=== PATIENT | female | born 1985 | race Caucasian/White ===

== ENCOUNTER 2018-07-10 17:48 | Inpatient (IN) | payer OTHER ==
[2018-07-10 18:22] VITALS: BMI 20.1
--- NOTE | 2018-07-10 19:10 | HP ---
"CIWA Score - Admission Criteria [facility]ASAS Guidelines: Admission for Medically Managed Detox: Requires at least one of the followin. CIWA greater than 12 2. Seizures within the past 24 hours 3. Delirium tremens within the past 24 hours 4. Hallucinations within the past 24 hours 5. Acute intervention needed for co occurring medical disorder 6. Acute intervention needed for co occurring psychiatric disorder 7. Severe withdrawal that cannot be handled at a lower level of care (continued vomiting, continued diarrhea, abnormal vital signs) requiring intravenous medication and/or fluids 8. Admission ROS [facility] - HPI History of Present Illness: x x x Search Terms: Zulema Rosas, 1985 Search Date: 07/10/2018 06:51:34 PM The Drug Utilization Report below displays all of the controlled substance prescriptions, if any, that your patient has filled in the last twelve months. The information displayed on this report is compiled from pharmacy submissions to the Department, and accurately reflects the information as submitted by the pharmacies. This report was requested by: Nati Ramsey | Reference #: [id number] There are no results for the search terms that you entered. - Ebola screening Have you been sick,other than usual withdrawal symptoms: No Admission Physical Exam BHS - Vital Signs Vital Signs: Vital Signs - 24 hr 07/10/18 18:19 Temperature 98.8 F Pulse Rate 108 H Respiratory 18 Rate Blood Pressure 140/99 BHS Breath Alcohol Content Breath Alcohol Content: 0 Urine Pregancy Test - Result Urine Test Results: Negative- NO Line Present Urine Drug Screen - Results Drug Screen Negative: No Urine Drug Screen Results: OPI-Opiates, BAR-Barbiturates, BZO-Benzodiazepines, OXY-Oxycodone, FEN-Fentanyl"
--- NOTE | 2018-07-10 20:38 | HP ---
"COWS - Scale Resting Pulse: 2= [place] 101-120 Sweatin= Chills/Flushing Restless Observation: 1= Difficult to Sit Still Pupil Size: 0= Normal to Room Light Bone or Joint Aches: 4=Acute Joint/Muscle Pain Runny Nose/ Eye Tearin= Nasal Congestion GI Upset > 30mins: 1= Stomach Cramp Tremor Observation: 2= Slight Tremor Visible Yawning Observation: 0= None Anxiety or Irritability: 2=Irritable/Anxious Goose Flesh Skin: 0=Smooth Skin COWS Score: 14 CIWA Score - Admission Criteria [facility]ASAS Guidelines: Admission for Medically Managed Detox: Requires at least one of the followin. CIWA greater than 12 2. Seizures within the past 24 hours 3. Delirium tremens within the past 24 hours 4. Hallucinations within the past 24 hours 5. Acute intervention needed for co occurring medical disorder 6. Acute intervention needed for co occurring psychiatric disorder 7. Severe withdrawal that cannot be handled at a lower level of care (continued vomiting, continued diarrhea, abnormal vital signs) requiring intravenous medication and/or fluids 8. Admission ROS [facility] Chief Complaint: C/O WORSENING WITHDRAWAL SX'S. SEEKING DETOX FROM ALCOHOL Allergies/Adverse Reactions: Allergies Allergy/AdvReac Type Severity Reaction Status Date / Time No Known Allergies Allergy Verified 07/10/18 20:10 History of Present Illness: 33 Y.O. FEMLAE WITH HX/O OPIOID DEPENDENCE HERE FOR DETOX. SELF REFERRED. PRESENTS WITH C/O WITHDRAWAL SX'S. COWS 14. STATES THIS IS HER FIRST INPATIENT DETOX. REPORTS LONGEST CLEAN TIME IS 1 WEEK IN THE YEAR THAT SHE HAS BEEN USING HEROIN. PMHX- ENDOMETRIOSIS, ANXIETY,PTSD. REPORTS HX/O SI BUT PRESENTLY DENIES SI/HI AND AVH. LIVES WITH S/O, SELF EMPLOYED, CURRENTLY ON PROBATION. Search Terms: navi valenzuela, 1985 Search Date: 07/10/2018 09:00:00 PM States Searched: [place], [place], [place], [place], [place], [place], [place], [place], [place], [place], [place], [place], [place], [place], [place], [place] , [place], [place], [place], [place], [place], [place], [place], [place], [place], [place], [place] The Drug Utilization Report below displays the controlled substance prescriptions, if any, that were dispensed in the indicated state(s). The information displayed on this report is compiled from requests submitted to other states' PMPs, and accurately reflects the information as returned by them. Blank mckinley indicate data not provided by other state. This report was requested by: Danya Decker | Reference #: [id number] Exam Limitations: No Limitations - Ebola screening Have you traveled outside of the country in the last 21 days: No Have you had contact with anyone from an Ebola affected area: No Have you been sick,other than usual withdrawal symptoms: No Do you have a fever: No - Review of Systems Constitutional: Chills, Loss of Appetite, Night Sweats, Changes in sleep, Unintentional Wgt. Loss EENT: reports: Nose Congestion Respiratory: reports: No Symptoms reported Cardiac: reports: No Symptoms Reported GI: reports: Poor Appetite, Abdominal cramping : reports: No Symptoms Reported Musculoskeletal: reports: Joint Pain Integumentary: reports: No Symptoms Reported Neuro: reports: No Symptoms reported Endocrine: reports: No Symptoms Reported Hematology: reports: No Symptoms Reported Psychiatric: reports: Orientated x3, Anxious, Depressed Other Systems: Reviewed and Negative Patient History - Patient Medical History Hx Anemia: No Hx Asthma: No Hx Chronic Obstructive Pulmonary Disease (COPD): No Hx Cancer: No Hx Cardiac Disorders: No Hx Congestive Heart Failure: No Hx Hypertension: No Hx Hypercholesterolemia: No Hx Pacemaker: No HX Cerebrovascular Accident: No Hx Seizures: No Hx Dementia: No Hx Diabetes: No Hx Gastrointestinal Disorders: No Hx Liver Disease: No Hx Genitourinary Disorders: No Hx Sexually Transmitted Disorders: No Hx Renal Disease (ESRD): No Hx Thyroid Disease: No Hx Human Immunodeficiency Virus (HIV): No Hx Hepatitis C: No Hx Depression: Yes Hx Suicide Attempt: No Hx Bipolar Disorder: No Hx Schizophrenia: No Other Medical History: ANXIETY, PTSD, ENDOMETRIOSIS - Patient Surgical History Past Surgical History: Yes Other Surgical History: D&C 4 YEARS AGO Anesthesia Reaction: No - PPD History Previous Implant?: No Implanted On Prior R Admission?: No PPD to be Administered?: Yes - Reproductive History Patient is a Female of Child Bearing Age (11 -55 yrs old): Yes Last Menstrual Period: 06/11/18 Patient : No [place] [place] - Smoking Cessation Smoking history: Current every day smoker Have you smoked in the past 12 months: Yes Aproximately how many cigarettes per day: 20 Cigars Per Day: 0 Hx Chewing Tobacco Use: No Initiated information on smoking cessation: Yes 'Breaking Loose' booklet given: 07/10/18 - Substance & Tx. History Hx Alcohol Use: No Hx Substance Use: Yes Substance Use Type: Heroin Hx Substance Use Treatment: No - Substances Abused Heroin Route: Injection Frequency: Daily Amount used: 6 BAGS Age of first use: 32 Date of Last Use: 07/10/18 Oxycontin Route: Oral Frequency: 3-6 times per week Amount used: 2/30MG Age of first use: 32 Date of Last Use: 07/10/18 [place] Route: Injection Frequency: Daily Amount used: 1 PILL Age of first use: 32 Date of Last Use: 07/10/18 Family Disease History - Family Disease History Family History: Denies Admission Physical Exam [facility] - Vital Signs Vital Signs: Vital Signs - 24 hr 07/10/18 18:19 Temperature 98.8 F Pulse Rate 108 H Respiratory 18 Rate Blood Pressure 140/99 - Physical General Appearance: Yes: Appropriately Dressed, Tremorous, Sweating (FLUSHED), Anxious HEENTM: Yes: EOMI, Normocephalic, Normal Voice, SEB, Pharynx Normal, Nasal Congestion, Other (DIALATED PUPILS) Respiratory: Yes: Chest Non-Tender, Lungs Clear, Normal Breath Sounds, No Respiratory Distress, No Accessory Muscle Use Neck: Yes: No masses,lesions,Nodules, Supple, Trachea in good position Breast: Yes: Breast Exam Deferred Cardiology: Yes: Regular Rhythm, S1, S2, Tachycardia Abdominal: Yes: Normal Bowel Sounds, Non Tender, Flat, Soft Genitourinary: Yes: Other (NO C/O) Back: Yes: Normal Inspection Musculoskeletal: Yes: full range of Motion, Gait Steady Extremities: Yes: Normal Capillary Refill, Normal Range of Motion, Non-Tender, Tremors Neurological: Yes: community center director II-XII NML intact, Fully Oriented, Alert, Motor Strength 5/5 Integumentary: Yes: Dry, Track Currie, Other (FLUSHED) Lymphatic: Yes: Within Normal Limits - Diagnostic (1) Opioid dependence with withdrawal Current Visit: Yes Status: Acute (2) Nicotine dependence Current Visit: Yes Status: Chronic Qualifiers: Nicotine product type: cigarettes Substance use status: uncomplicated Qualified Code(s): F17.210 - Nicotine dependence, cigarettes, uncomplicated (3) Drug induced insomnia Current Visit: Yes Status: Suspected (4) Endometriosis Current Visit: Yes Status: Chronic (5) At risk for dehydration due to poor fluid intake Current Visit: Yes Status: Acute (6) Drug-induced mood disorder Current Visit: Yes Status: Suspected Cleared for Admission [facility] - Detox or Rehab [facility] Level of Care: Medically Managed Detox Regimen/Protocol: Methadone Claeared for Rehab Admission: No [facility] Breath Alcohol Content Breath Alcohol Content: 0 Urine Pregancy Test - Result Urine Test Results: Negative- NO Line Present Urine Drug Screen - Results Drug Screen Negative: No Urine Drug Screen Results: OPI-Opiates, BAR-Barbiturates, BZO-Benzodiazepines, OXY-Oxycodone, FEN-Fentanyl"
[2018-07-10] MEDS ORDERED: ACETAMINOPHEN 325 MG TABLET (FP) PO PRN (20:45)
[2018-07-10] MEDS ORDERED: IBUPROFEN 400 MG TABLET (FP) PO PRN (20:45)
[2018-07-10] MEDS ORDERED: guaiFENesin/D-METHORPHAN HB 10 ML UNIT-DOSE CUPS PO PRN (20:45)
[2018-07-10] MEDS ORDERED: hydrOXYzine PAMOATE 50 MG CAPSULE (FP) PO PRN (20:45)
[2018-07-10] MEDS ORDERED: MAG HYDROX/AL HYDROX/SIMETH 30 ML UNIT-DOSE CUP PO PRN (20:45)
[2018-07-10] MEDS ORDERED: LOPERAMIDE HCL 2 MG CAPSULE PO PRN (20:45)
[2018-07-10] MEDS ORDERED: MAGNESIUM CITRATE 300 ML BOTTLE PO PRN (20:45)
[2018-07-10] MEDS ORDERED: P-EPHED 60MG/TRIPROLIDI 2.5MG TABLET PO PRN (20:45)
[2018-07-10] MEDS ORDERED: MENTHOL/PHENOL 1 EACH UD MM PRN (20:45)
[2018-07-10] MEDS ORDERED: MAGNESIUM HYDROX 2400MG/30ML ORAL SUSPENSION 30 ML CUP PO PRN (20:45)
[2018-07-10] MEDS ORDERED: METHADONE HCL 10 MG TABLET (FOR DETOX USE ONLY) PO ONE ×2 (20:45→23:00)
[2018-07-10] MEDS ORDERED: NICOTINE POLACRILEX 2 MG GUM BC PRN (20:45)
[2018-07-10] MEDS ORDERED: MELATONIN 5 MG TABLETS PO PRN (22:00)
[2018-07-10] MEDS ORDERED: THIAMINE HCL 100 MG TABLET (FP) PO SCH (22:00)
[2018-07-10] MEDS: diazePAM 5 MG TABLET PO PRN (22:02)
[2018-07-10] MEDS: GABAPENTIN 300 MG CAPSULE (FP) PO SCH (22:03)
[2018-07-11] MEDS: diazePAM 5 MG TABLET PO PRN ×4 (01:59→18:04)
[2018-07-11] MEDS ORDERED: IBUPROFEN 400 MG TABLET (FP) PO ONE (03:41)
[2018-07-11] MEDS ORDERED: hydrOXYzine PAMOATE 50 MG CAPSULE (FP) PO ONE (03:41)
[2018-07-11] MEDS ORDERED: METHADONE HCL 10 MG TABLET (FOR DETOX USE ONLY) PO ONE ×2 (03:43→10:00)
--- NOTE | 2018-07-11 03:48 | PN ---
S Progress Note Note: seen for c/o worsening withdrawal sx's , pain, anxiety. reports using 36 bags of heroin. menses started and suffering from endometrial pain 01/18. Vital Signs Temperature 97.8 F 07/11/18 03:47 Pulse Rate 101 H 07/11/18 03:47 Respiratory Rate 18 07/11/18 03:47 Blood Pressure 116/81 07/11/18 03:47 O2 Sat by Pulse Oximetry (%) awake, anxious, pacing, a/o x3, requesting to sign out methadone 10 mg now motrin 400 mg now vistaril 50 mg po now
--- NOTE | 2018-07-11 07:48 | CONSULT ---
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 Substance Abuse History: Wellbutrin 100mg po bid. Gabapentin 800mg po tid Medical History: Endometriosis history Psychiatric History: Patient reports history of depression and anxiety, reports unclear psychiatric hospitalization on more then 10 years ago, currently taking prior o admission: Gabapentin 300mg po0 tid. Denies suicidal, homicidal history Physical/Sexual Abuse/Trauma History: Denies Additional Comment: Gabapentin 300mg po0 tid Mental Status Exam - Mental Status Exam Alert and Oriented to: Person Cognitive Function: Fair Patient Appearance: Unkempt Mood: Apprehensive Affect: Mood Congruent Patient Behavior: Cooperative Speech Pattern: Appropriate Voice Loudness: Mildly Soft/Quiet Thought Process: Circumstantial Thought Disorder: Being Controlled Hallucinations: Denies Suicidal Ideation: Denies Homicidal Ideation: Denies Insight/Judgement: Fair Sleep: Difficulty falling asleep Appetite: Fair Muscle strength/Tone: Mild Hypotonicity Gait/Station: Shuffling Additional Comments: Gabapentin 300mg po0 tid Psychiatric Findings - Problem List ([place] 1, 2,3) (1) Opioid dependence with withdrawal Current Visit: Yes Status: Acute (2) Endometriosis Current Visit: Yes Status: Chronic (3) Nicotine dependence Current Visit: Yes Status: Chronic Qualifiers: Nicotine product type: cigarettes Substance use status: uncomplicated Qualified Code(s): F17.210 - Nicotine dependence, cigarettes, uncomplicated (4) Drug induced insomnia Current Visit: Yes Status: Suspected (5) Drug-induced mood disorder Current Visit: Yes Status: Suspected - Initial Treatment Plan Initial Treatment Plan: Gabapentin 300mg po0 tid
[2018-07-11] MEDS: GABAPENTIN 300 MG CAPSULE (FP) PO SCH ×2 (08:08→14:02)
[2018-07-11] MEDS ORDERED: PRENATAL VITAMINS W/ FOLIC ACID TABLET (FP) PO SCH (10:00)
[2018-07-11] MEDS ORDERED: NICOTINE 21 MG/24 HOURS TOPICAL PATCH TD SCH (10:00)
[2018-07-11 10:34] LABS: HEMATOCRIT 42.3 % (32.4-45.2); HEMOGLOBIN 14.7 GM/dL (10.7-15.3); MCH 30.8 pg (25.7-33.7); MCHC 34.7 g/dl (32.0-36.0); MEAN CELL VOLUME 88.7 fl (80-96); MEAN PLT VOLUME 9.1 fl (7.5-11.1); PLATELET COUNT 293 K/MM3 (134-434); RBC 4.77 M/mm3 (3.60-5.2); RDW 13.5 % (11.6-15.6); WHITE BLOOD COUNT 7.7 K/mm3 (4.0-10.0)
[2018-07-11 10:49] LABS: ALBUMIN 3.7 g/dl (3.4-5.0); ALK PHOS 58 U/L (45-117); ANION GAP 9 MMOL/L (8-16); BILIRUBIN,TOTAL 0.4 mg/dL (0.2-1); BLOOD UREA NITROGEN 15 mg/dL (7-18); CALCIUM 9.3 mg/dL (8.5-10.1); CHLORIDE 109 mmol/L (98-107); CO2 24 mmol/L (21-32); CREATININE 0.7 mg/dL (0.55-1.3); GLUCOSE,RANDOM 92 mg/dL (74-106); POTASSIUM 4.1 mmol/L (3.5-5.1); SGOT/AST 13 U/L (15-37); SGPT/ALT 16 U/L (13-61); SODIUM 142 mmol/L (136-145); TOT PROT 7.2 g/dl (6.4-8.2)
--- NOTE | 2018-07-11 12:12 | PN ---
BHS COWS - Scale Resting Pulse: 1= [place] 81-100 Sweatin=Flushed/Facial Moisture Restless Observation: 1= Difficult to Sit Still Pupil Size: 0= Normal to Room Light Bone or Joint Aches: 2= Severe Diffuse Aches Runny Nose/ Eye Tearin= Runny Nose/Eyes GI Upset > 30mins: 0= None Tremor Observation of Outstretched Hands: 2= Slight Tremor Visible Yawning Observation: 2= >3x During Session Anxiety or Irritability: 2=Irritable/Anxious Goose Flesh Skin: 3=Piloerection COWS Score: 17 BHS Progress Note (SOAP) Subjective: body aches sweats shakes chills interrupted sleep agitation anxiety Objective: 07/11/18 12:11 Vital Signs Temperature 97.5 F L 07/11/18 09:33 Pulse Rate 87 07/11/18 09:33 Respiratory Rate 18 07/11/18 09:33 Blood Pressure 107/63 07/11/18 09:33 O2 Sat by Pulse Oximetry (%) Laboratory Tests 07/11/18 07/11/18 07/11/18 07:00 07:00 07:00 WBC 7.7 RBC 4.77 Hgb 14.7 Hct 42.3 MCV 88.7 MCH 30.8 MCHC 34.7 RDW 13.5 Plt Count 293 MPV 9.1 Sodium 142 Potassium 4.1 Chloride 109 H Carbon Dioxide 24 Anion Gap 9 BUN 15 Creatinine 0.7 Creat Clearance w eGFR > 60 Random Glucose 92 Calcium 9.3 Total Bilirubin 0.4 AST 13 L ALT 16 Alkaline Phosphatase 58 Total Protein 7.2 Albumin 3.7 RPR Titer Nonreactive aaox3 ambulating no acute distress Assessment: 07/11/18 12:12 withdrawal sx Plan: continue detox increase fluids motrin/tylenol prn
--- NOTE | 2018-07-11 14:18 | EKG ---
Test Reason : Blood Pressure : / mmHG Vent. Rate : 099 BPM Atrial Rate : 099 BPM P-R Int : 118 ms QRS Dur : 084 ms QT Int : 378 ms P-R-T Axes : 076 077 050 degrees QTc Int : 485 ms NORMAL SINUS RHYTHM BIATRIAL ENLARGEMENT PROLONGED QT ABNORMAL ECG NO PREVIOUS ECGS AVAILABLE Confirmed by LEYDI HOLLY, NICKY ([id number]) on 07/11/2018 2:17:53 PM Referred By: Confirmed By:NICKY HOLLEY MD
[2018-07-11 17:21] VITALS: BP 115/68; PULSE 98; TEMP 98.6
--- NOTE | 2018-07-11 23:30 | DS ---
[facility] Detox Discharge Summary Admission Date: 07/10/18 Discharge Date: 07/11/18 - History Present History: Opioid Dependence Additional Comments: Patient admitted with opiate withdrawal. Pertinent Past History: Nicotine use disorder Endometrioosis Anxiety - Physical Exam Results Vital Signs: Vital Signs Temperature 98.6 F 07/11/18 17:20 Pulse Rate 98 H 07/11/18 17:20 Respiratory Rate 18 07/11/18 17:20 Blood Pressure 115/68 07/11/18 17:20 O2 Sat by Pulse Oximetry (%) Pertinent Admission Physical Exam Findings: Patient admitted with opiate withdrawal and opiate detox protocol ordered. Laboratory Last Values WBC 7.7 K/mm3 (4.0-10.0) 07/11/18 07:00 RBC 4.77 M/mm3 (3.60-5.2) 07/11/18 07:00 Hgb 14.7 GM/dL (10.7-15.3) 07/11/18 07:00 Hct 42.3 % (32.4-45.2) 07/11/18 07:00 MCV 88.7 fl (80-96) 07/11/18 07:00 MCH 30.8 pg (25.7-33.7) 07/11/18 07:00 MCHC 34.7 g/dl (32.0-36.0) 07/11/18 07:00 RDW 13.5 % (11.6-15.6) 07/11/18 07:00 Plt Count 293 K/MM3 (134-434) 07/11/18 07:00 MPV 9.1 fl (7.5-11.1) 07/11/18 07:00 Sodium 142 mmol/L (136-145) 07/11/18 07:00 Potassium 4.1 mmol/L (3.5-5.1) 07/11/18 07:00 Chloride 109 mmol/L (98-107) H 07/11/18 07:00 Carbon Dioxide 24 mmol/L (21-32) 07/11/18 07:00 Anion Gap 9 MMOL/L (8-16) 07/11/18 07:00 BUN 15 mg/dL (7-18) 07/11/18 07:00 Creatinine 0.7 mg/dL (0.55-1.3) 07/11/18 07:00 Creat Clearance w eGFR > 60 (>60) 07/11/18 07:00 Random Glucose 92 mg/dL (74-106) 07/11/18 07:00 Calcium 9.3 mg/dL (8.5-10.1) 07/11/18 07:00 Total Bilirubin 0.4 mg/dL (0.2-1) 07/11/18 07:00 AST 13 U/L (15-37) L 07/11/18 07:00 ALT 16 U/L (13-61) 07/11/18 07:00 Alkaline Phosphatase 58 U/L (45-117) 07/11/18 07:00 Total Protein 7.2 g/dl (6.4-8.2) 07/11/18 07:00 Albumin 3.7 g/dl (3.4-5.0) 07/11/18 07:00 RPR Titer Nonreactive (NONREACTIVE) 07/11/18 07:00 Labs reviewed. - Treatment Hospital Course: Detox Protocol Followed (Patient did not complete detox.) - Medication Discharge Medications: Ambulatory Orders Clonidine HCl 0.1 mg PO DAILY 07/10/18 Diazepam [Valium] 10 mg PO DAILY 07/10/18 Gabapentin 300 mg PO TID 07/10/18 Promethazine HCl 25 mg PO PRN 07/10/18 - AMA Did Patient Leave Against Medical Advice: Yes (Patient alert & oriented; refused to stay despite continued encouragement.)
[2018-07-12] MEDS ORDERED: METHADONE HCL 5 MG TABLET (FOR DETOX USE ONLY) PO ONE (10:00)
[2018-07-13] MEDS ORDERED: METHADONE HCL 5 MG TABLET (FOR DETOX USE ONLY) PO ONE (10:00)
[2018-07-14] MEDS ORDERED: METHADONE HCL 10 MG TABLET (FOR DETOX USE ONLY) PO ONE (10:00)
[2018-07-15] MEDS ORDERED: METHADONE HCL 5 MG TABLET (FOR DETOX USE ONLY) PO ONE (06:00)
== END 2018-07-11 20:14 | disposition left against medical advice (07) | DRG 770 ==
LOC: YASAS 17:48 → Y6N 21:08
PROVIDERS: ADMIT Neuromusculoskeletal Medicine & OMM; ATTEND Neuromusculoskeletal Medicine & OMM
PROC: HZ2ZZZZ Detoxification Services for Substance Abuse Treatment (ICD-10-PCS; principal; 2018-07-10)
DX: F11.23 Opioid dependence with withdrawal (principal); F17.210 Nicotine dependence, cigarettes, uncomplicated; F19.24 Other psychoactive substance dependence with psychoactive substance-induced mood disorder; F19.282 Other psychoactive substance dependence with psychoactive substance-induced sleep disorder; R63.8 Other symptoms and signs concerning food and fluid intake; R00.0 Tachycardia, unspecified; Z87.42 Personal history of other diseases of the female genital tract
CPT/HCPCS: 36415; 80053; 85027; 86593; 93005; 93010